=== PATIENT | male | born 1975 | race Caucasian/White ===

== ENCOUNTER 2025-03-12 14:12 | Outpatient (CLI) | payer BC, SELFPAY | END 2025-03-12 14:13 | disposition home or self-care (01) | LOC: WOUND 14:13 | PROVIDERS: Family Provider Family Medicine; Visit Provider Surgery | DX: E11.621 Type 2 diabetes mellitus with foot ulcer (principal); E11.42 Type 2 diabetes mellitus with diabetic polyneuropathy; L97.512 Non-pressure chronic ulcer of other part of right foot with fat layer exposed; Z72.0 Tobacco use; Z79.84 Long term (current) use of oral hypoglycemic drugs | CPT/HCPCS: 11042; 87070; 87186; G0463 ==

== ENCOUNTER 2025-03-26 14:22 | Outpatient (CLI) | payer BC, SELFPAY | END 2025-03-26 14:23 | disposition home or self-care (01) | LOC: WOUND 14:22 | PROVIDERS: Visit Provider Surgery | DX: E11.621 Type 2 diabetes mellitus with foot ulcer (principal); E11.42 Type 2 diabetes mellitus with diabetic polyneuropathy; L97.512 Non-pressure chronic ulcer of other part of right foot with fat layer exposed; Z79.84 Long term (current) use of oral hypoglycemic drugs; Z72.0 Tobacco use | CPT/HCPCS: 11042 ==

== ENCOUNTER 2025-04-02 14:25 | Outpatient (CLI) | payer BC, SELFPAY | END 2025-04-02 14:26 | disposition home or self-care (01) | LOC: WOUND 14:25 | PROVIDERS: Visit Provider Surgery | DX: E11.621 Type 2 diabetes mellitus with foot ulcer (principal); E11.42 Type 2 diabetes mellitus with diabetic polyneuropathy; L97.512 Non-pressure chronic ulcer of other part of right foot with fat layer exposed; Z79.84 Long term (current) use of oral hypoglycemic drugs; Z72.0 Tobacco use | CPT/HCPCS: 97597 ==

== ENCOUNTER 2025-04-16 15:20 | Outpatient (CLI) | payer BC, SELFPAY | END 2025-04-16 15:21 | disposition home or self-care (01) | LOC: WOUND 15:20 | PROVIDERS: Visit Provider Surgery | DX: E11.621 Type 2 diabetes mellitus with foot ulcer (principal); E11.42 Type 2 diabetes mellitus with diabetic polyneuropathy; L97.512 Non-pressure chronic ulcer of other part of right foot with fat layer exposed; Z72.0 Tobacco use; Z79.84 Long term (current) use of oral hypoglycemic drugs | CPT/HCPCS: 11042 ==

== ENCOUNTER 2025-04-23 15:23 | Outpatient (CLI) | payer BC, SELFPAY | END 2025-04-23 15:24 | disposition home or self-care (01) | LOC: WOUND 15:23 | PROVIDERS: Visit Provider Surgery | DX: E11.621 Type 2 diabetes mellitus with foot ulcer (principal); E11.42 Type 2 diabetes mellitus with diabetic polyneuropathy; L97.512 Non-pressure chronic ulcer of other part of right foot with fat layer exposed; Z72.0 Tobacco use; Z79.84 Long term (current) use of oral hypoglycemic drugs | CPT/HCPCS: G0463 ==

== ENCOUNTER 2025-05-07 15:17 | Outpatient (CLI) | payer BC, SELFPAY | END 2025-05-07 15:18 | disposition home or self-care (01) | LOC: WOUND 15:17 | PROVIDERS: Visit Provider Surgery | DX: E11.621 Type 2 diabetes mellitus with foot ulcer (principal); E11.42 Type 2 diabetes mellitus with diabetic polyneuropathy; L97.512 Non-pressure chronic ulcer of other part of right foot with fat layer exposed; L84 Corns and callosities; Z72.0 Tobacco use; Z79.84 Long term (current) use of oral hypoglycemic drugs | CPT/HCPCS: 11055 ==

== ENCOUNTER 2025-05-21 15:08 | Outpatient (CLI) | payer BC, SELFPAY | END 2025-05-21 15:09 | disposition home or self-care (01) | LOC: WOUND 15:08 | PROVIDERS: Visit Provider Surgery | DX: Z09 Encounter for follow-up examination after completed treatment for conditions other than malignant neoplasm (principal); Z86.31 Personal history of diabetic foot ulcer; E11.42 Type 2 diabetes mellitus with diabetic polyneuropathy; Z72.0 Tobacco use; Z79.84 Long term (current) use of oral hypoglycemic drugs | CPT/HCPCS: G0463 ==